=== PATIENT | female | born 1955 | race Caucasian/White ===

== ENCOUNTER 2022-01-19 08:54 | Day surgery (SDC) | payer BC, MEDICARE ==
[2022-01-17 11:04] VITALS: BMI 37.5
[~2022-01-19 08:54] MED LIST: ACETAMINOPHEN TAB 500 MG TAB PO PRN; HEPARIN SODIUM,PORCINE/PF 5,000 UNIT/0.5 ML SYRINGE SQ PRN
[2022-01-19] MEDS ORDERED: ONDANSETRON 4 MG/2 ML VIAL ONE (09:19)
[2022-01-19 09:33] LABS: Glucose,Whole Blood 129 mg/dL (75-99)
[2022-01-19] MEDS ORDERED: LACTATED RINGERS 1,000 ML IV ONE (09:35)
[2022-01-19] MEDS ORDERED: fentaNYL (PF) 50 MCG/ML 2 ML AMP IVP ONE (10:24)
[2022-01-19] MEDS ORDERED: MIDAZOLAM 2 MG/2 ML VIAL IVP ONE (10:24)
[2022-01-19] MEDS ORDERED: BUPIVACAINE (PF) 0.25% 30 ML VIAL SQ ONE (10:28)
[2022-01-19] MEDS ORDERED: PROPOFOL 10 MG/ML 20 ML VIAL IV ONE (10:35)
[2022-01-19] MEDS ORDERED: SUCCINYLCHOLINE CHLORIDE 100 MG/5 ML SYR IV ONE (10:35)
[2022-01-19] MEDS ORDERED: ROPIVACAINE 5 MG/ML 30 ML VIAL ONE (10:35)
[2022-01-19] MEDS ORDERED: NEOSTIGMINE 1 MG/ML 10 ML VIAL ONE (10:35)
[2022-01-19] MEDS ORDERED: GLYCOPYRROLATE 0.2 MG/ML 2 ML VIAL ONE (10:35)
[2022-01-19] MEDS ORDERED: LIDOCAINE 1% INJ 10MG/ML (20 ML MDV) ONE (10:35)
[2022-01-19] MEDS ORDERED: SODIUM CHLORIDE 0.9% (PF) 10 ML VIAL ONE (10:35)
[2022-01-19] MEDS ORDERED: fentaNYL (PF) 50 MCG/ML 2 ML AMP ONE (10:35)
[2022-01-19] MEDS ORDERED: PHENYLEPHRINE-0.9% NACL SYG 1,000 MCG/10 ML SYRINGE ONE (10:35)
[2022-01-19] MEDS ORDERED: ROCURONIUM 10 MG/ML (5 ML VIAL) IV ONE (10:35)
--- NOTE | 2022-01-19 10:37 | P.GSHP ---
History of Present Illness H&P Date: 01/19/22 Chief Complaint: Incarcerated ventral hernia 66-year-old female here today for elective repair incarcerated ventral hernia. Mild pain at times. Hernia enlarging over the last few years. No nausea or vomiting. Past Medical History Past Medical History: GERD/Reflux, Hypertension Additional Past Medical History / Comment(s): "prediabetic"-supposed to watch diet, overactive bladder, fell last week and has sore ribs History of Any Multi-Drug Resistant Organisms: None Reported Past Surgical History: Appendectomy Additional Past Surgical History / Comment(s): D&C, jeromy cataracts Past Anesthesia/Blood Transfusion Reactions: No Reported Reaction Smoking Status: Former smoker - Past Family History Mother Family Medical History: Cancer Medications and Allergies Home Medications Medication Instructions Recorded Confirmed Type Aspirin [Adult Low Dose Aspirin EC] 81 mg PO DAILY 01/17/22 01/19/22 History Calcium(Dose Unknown) 1 tab PO DAILY 01/17/22 01/19/22 History Naproxen Sodium [Aleve] 220 mg PO Q12HR PRN 01/17/22 01/19/22 History Omeprazole(Dose Unknown) 1 tab PO HS 01/17/22 01/19/22 History Oxybutynin(Dose Unknown) 1 tab PO DAILY 01/17/22 01/19/22 History Vitamin D(Dose Unknown) 1 tab PO DAILY 01/17/22 01/19/22 History lisinopriL [Zestril] 20 mg PO DAILY 01/17/22 01/19/22 History Allergies Allergy/AdvReac Type Severity Reaction Status Date / Time No Known Allergies Allergy Verified 01/19/22 09:10 Surgical - Exam Vital Signs Temp Pulse Resp BP Pulse Ox 99.2 F 82 18 172/74 95 01/19/22 09:11 01/19/22 09:11 01/19/22 09:11 01/19/22 09:11 01/19/22 09:11 Physical exam: General: Well-developed, well-nourished HEENT: Normocephalic, sclerae nonicteric Abdomen: Nontender, nondistended, incarcerated ventral hernia moderate to large in size, minimally tender Extremities: No edema Neuro: Alert and oriented Results - Labs Abnormal Lab Results - Last 24 Hours (Table) 01/19/22 Range/Units 09:31 POC Glucose (mg/dL) 129 H (75-99) mg/dL Assessment and Plan (1) Incarcerated ventral hernia Narrative/Plan: 66-year-old female with incarcerated ventral hernia. We'll proceed with open repair with mesh at this time. Risks of bleeding, infection, recurrence, bladder and bowel injury, numbness, nerve injury were discussed with the patient. The patient understands and wishes to proceed. Current Visit: Yes Status: Acute Code(s): K43.6 - OTHER AND UNSP VENTRAL HERNIA WITH OBSTRUCTION, W/O GANGRENE SNOMED Code(s): 489583970
[2022-01-19] MEDS ORDERED: HEPARIN SODIUM,PORCINE 5,000 UNIT/ML 1 ML VIAL SQ ONE (10:40)
[2022-01-19] MEDS ORDERED: DEXAMETHASONE SOD PHOSPHATE 4 MG/ML 1 ML VIAL IVP ONE (10:40)
--- NOTE | 2022-01-19 11:02 | P.ANPRN ---
Procedure Note - Anesthesia - Nerve Block Performed Bilateral Erector Spinae Time Out Performed: Yes (:) Date of Procedure: 01/19/22 Procedure Start Time: Procedure Stop Time: :32 Location of Patient: PreOp Indication: Acute Post-Operative Pain, Requested by Surgeon (Dr Soliz) Sedation Type: Sedate with meaningful contact maintained Preparation: Sterile Prep Position: Prone Catheter: None Needle Types: Pajunk Needle Gauge: 21 Ultrasound used to visualize needle placement: Yes Ultrasound used to observe medication spread: Yes Injectate: 0.5% Ropivacaine (see comment for volume) (15cc +10cc PF Normal saline each side) Blood Aspirated: No Pain Paresthesia on Injection Noted: No Resistance on Injection: Normal Image Stored and Saved: Yes Events: Uneventful and Well Tolerated
[2022-01-19] MEDS ORDERED: HYDROmorphone 0.5 MG/0.5 ML SYRINGE IVP ONE ×3 (12:25→12:42)
[2022-01-19] MEDS ORDERED: NALOXONE 0.4 MG/ML 1 ML VIAL IV PRN (12:27)
[2022-01-19] MEDS ORDERED: ONDANSETRON 4 MG/2 ML VIAL IVP PRN (12:27)
[2022-01-19] MEDS ORDERED: bisacodyL 10 MG SUPP RECTAL PRN (12:27)
[2022-01-19] MEDS ORDERED: METOCLOPRAMIDE 5 MG/ML 2 ML VIAL IVP PRN (12:27)
[2022-01-19] MEDS ORDERED: HYDROmorphone 0.5 MG/0.5 ML SYRINGE IVP PRN (12:27)
--- NOTE | 2022-01-19 12:41 | P.OP ---
Date of Procedure: 01/19/22 Procedure(s) Performed: PREOPERATIVE DIAGNOSIS: Incarcerated ventral hernia POSTOPERATIVE DIAGNOSIS: Same PROCEDURE: Repair incarcerated ventral hernia with mesh, partial omentectomy SURGEON: Dr. Soliz ANESTHESIA: General OPERATIVE PROCEDURE DETAILS: Patient placed on the operating table in the supine position. Abdomen was prepped and draped in usual sterile fashion. A vertical incision was then made superior to the umbilicus by approximately 3 cm. Dissection through the subcutaneous tissues took place using electrocautery. The patient had a large hernia coming through a defect measuring 3 x 4 cm. The hernia sac was opened. The omentum was freed from the edges. A portion of the omentum was excised using the LigaSure device. The hernia sac was excised also using the LigaSure device. This hernia sac was then closed using a running locking 2-0 Vicryl suture. As I was dissecting the fascia around the main defect another 1.5 x 1.5 cm ventral hernia was encountered. This was partially excised. The fascial opening was incorporated into the main fascial defect which now measured 5 x 3 cm. The pre-peroneal space was fully dissected. In dissecting the preparethe preperitoneal space was quite thin laterally and we did enter the peritoneal cavity at those locations. The 8 cm round ventral ex mesh was placed beneath the fascia and sutured to the fascia using trans-fascial 0 Ethibond sutures. The defect was then closed horizontally in a vest over pants fashion using interrupted 0 Ethibond sutures. The folding edge was sutured down using 0 Ethibond sutures as well. A drain was placed anterior to the fascial closure exiting from the right lateral lower quadrant. The subcutaneous tissues were closed using 3-0 Vicryl sutures. The skin was closed using a running 4-0 Monocryl suture. Skin glue and sterile dressings were applied. Length: 3 cm Width: 5 cm Type: Incarcerated ventral TYPE OF MESH USED: Ventral ex 8 cm LOCATION OF MESH: sublay FIXATION: Trans-fascial level Ethibond sutures PREOPERATIVE DISCUSSION ON SMOKING CESSASTION: Yes PREOPERATIVE DISCUSSION ON MORBID OBESITY: Yes PREOPERATIVE DISCUSSION ON APPROPRIATE USE OF NARCOTIC USE: Yes DISPOSITION: Stable to recovery room
[2022-01-19] MEDS: HYDROcodone/APAP 5-325MG 1 EACH TAB PO PRN ×2 (14:09→22:37)
[2022-01-19] MEDS: D5-0.45% NACL WITH KCL 20MEQ/L 1,000 ML IV SCH ×2 (15:58→22:38)
[2022-01-19] MEDS ORDERED: ARTIFICIAL TEARS-HYPROMELLOSE DROPS 15 ML BTL RIGHT EYE PRN (16:10)
--- NOTE | 2022-01-19 16:10 | P.CONS ---
History of Present Illness - Reason for Consult Consult date: 01/19/22 Medical management Requesting physician: Be Soliz - Chief Complaint Hernia repair - History of Present Illness This is a very pleasant 66-year-old patient follows with Dr. Tirado. Chronic stable medical conditions include GERD, hypertension, prediabetes, overactive bladder,. A few years ago she thinks she (heavy water can hold on 40 pounds and since then has noticed a hernia progressive in the abdominal wall. Patient has undergone repair of incarcerated ventral hernia with mesh with partial omentectomy. Postprocedure laying in bed. In control. No nausea vomiting. No fever no chills. Denies any cardiac history. Review of systems: GEN.: Tired EYES: None HEENT: None NECK: None RESPIRATORY: None CARDIOVASCULAR: None GASTROINTESTINAL: None GENITOURINARY: Overactive bladder MUSCULOSKELETAL: As above LYMPHATICS: None HEMATOLOGICAL: None PSYCHIATRY: None NEUROLOGICAL: None Past medical history to include: GERD, hypertension, prediabetes, overactive bladder, left rib cage pain from recent fall, abdominal wall hernia Social history: Patient smoked for 30 years stopped about 20 years ago. Alcohol occasionally. Lives alone. Family history: Cancer Physical examination: VITAL SIGNS: 97.5, 76, 18, 118/80, 93% room air GENERAL: BMI 36.6, reclining in bed, awake. EYES: Pupils equal. Conjunctiva normal. HEENT: External appearance of nose and ears normal, oral cavity grossly normal. NECK: JVD not raised; masses not palpable. HEART: First and second heart sounds are normal; no edema. LUNGS: Respiratory rate normal; decreased breath sounds. ABDOMEN: Soft, binder, mild tenderness r, liver spleen not palpable, no masses palpable. PSYCH: Alert and oriented x3; mood and affect normal. MUSCULOSKELETAL:No Clubbing/cyanosis;muscles-grossly intact NEUROLOGICAL: Cranial nerves grossly intact; no facial asymmetry, power and sensation grossly intact. LYMPHATICS: No lymph nodes palpable in the axilla and neck Assessment and plan: -Repair of incarcerated ventral hernia with some partial omentectomy Abdominal binder. Pain control per Dr. Duval -GERD Omeprazole -Overactive bladder Oxybutynin -Essential hypertension Zestril -Primary osteoarthritis Naproxen -Obesity BMI 36.6 Weight loss measures Resume home medications. Venodyne boots. Diet to be advanced per surgery. Care was discussed with the patient question also. Patient to follow with Dr. Tirado upon discharge Thank you Dr. Duval Past Medical History Past Medical History: GERD/Reflux, Hypertension Additional Past Medical History / Comment(s): "prediabetic"-supposed to watch diet, overactive bladder, fell last week and has sore ribs History of Any Multi-Drug Resistant Organisms: None Reported Past Surgical History: Appendectomy Additional Past Surgical History / Comment(s): D&C, jeromy cataracts Past Anesthesia/Blood Transfusion Reactions: No Reported Reaction Past Psychological History: No Psychological Hx Reported Smoking Status: Former smoker Past Alcohol Use History: Occasional Additional Past Alcohol Use History / Comment(s): quit smoking over 20 yrs ago, smoked since age 14 Past Drug Use History: None Reported - Past Family History Mother Family Medical History: Cancer Medications and Allergies Home Medications Medication Instructions Recorded Confirmed Type Aspirin [Adult Low Dose Aspirin EC] 81 mg PO DAILY 01/17/22 01/19/22 History Calcium(Dose Unknown) 1 tab PO DAILY 01/17/22 01/19/22 History Naproxen Sodium [Aleve] 220 mg PO Q12HR PRN 01/17/22 01/19/22 History Omeprazole(Dose Unknown) 1 tab PO HS 01/17/22 01/19/22 History Oxybutynin(Dose Unknown) 1 tab PO DAILY 01/17/22 01/19/22 History Vitamin D(Dose Unknown) 1 tab PO DAILY 01/17/22 01/19/22 History lisinopriL [Zestril] 20 mg PO DAILY 01/17/22 01/19/22 History oxyCODONE HCL [OxyIR] 5 mg PO Q6H PRN 3 Days #6 tab 01/19/22 Rx Allergies Allergy/AdvReac Type Severity Reaction Status Date / Time No Known Allergies Allergy Verified 01/19/22 09:10 Physical Exam Vitals: Vital Signs Temp Pulse Resp BP Pulse Ox 01/19/22 13:32 97.5 F L 76 18 118/80 93 L 01/19/22 13:00 77 16 122/65 100 01/19/22 12:45 69 16 119/70 100 01/19/22 12:30 67 16 111/62 100 01/19/22 12:15 97 F L 69 12 103/51 95 01/19/22 10:40 74 16 125/73 95 03/11/22 09:11 99.2 F 82 18 172/74 95 Intake and Output 01/19/22 01/19/22 01/19/22 06:59 14:59 22:59 Intake Total 650 Output Total 25 Balance 625 Intake: IV 650 Output: Estimated Blood Loss 25 Other: Weight 98.3 kg Results Labs: Abnormal Lab Results - Last 24 Hours (Table) 01/19/22 Range/Units 09:31 POC Glucose (mg/dL) 129 H (75-99) mg/dL
[2022-01-19] MEDS: HEPARIN SODIUM,PORCINE/PF 5,000 UNIT/0.5 ML SYRINGE SQ SCH ×2 (16:15→22:38)
[2022-01-19] MEDS: KETOROLAC 15 MG/ML 1 ML VIAL IVP SCH ×2 (17:11→22:36)
[2022-01-19] MEDS ORDERED: PANTOPRAZOLE 40 MG TABLET PO SCH (21:00)
[2022-01-19] MEDS: DOCUSATE 100 MG CAP PO SCH (22:37)
[2022-01-20] MEDS: KETOROLAC 15 MG/ML 1 ML VIAL IVP SCH ×2 (05:43→11:57)
[2022-01-20 07:54] VITALS: RESP 17
[2022-01-20] MEDS: D5-0.45% NACL WITH KCL 20MEQ/L 1,000 ML IV SCH (08:34)
[2022-01-20] MEDS: HEPARIN SODIUM,PORCINE/PF 5,000 UNIT/0.5 ML SYRINGE SQ SCH (08:34)
[2022-01-20] MEDS: OXYBUTYNIN XL 5 MG TAB.ER.24 PO SCH ×2 (08:35→08:36)
[2022-01-20] MEDS: DOCUSATE 100 MG CAP PO SCH (08:35)
[2022-01-20 08:37] LABS: Basophils # (A) 0.03 X 10*3/uL (0.00-0.10); Basophils % (A) 0.3 %; Eosinophils # (A) 0.01 X 10*3/uL (0.04-0.35); Eosinophils % (A) 0.1 %; Immature Grans, Automated 0.4 %; Lymphocytes # (A) 1.41 X 10*3/uL (0.90-5.00); Lymphocytes % (A) 13.5 %; MCH 28.7 pg (27.0-32.0); MCHC 31.7 g/dL (32.0-37.0); MCV 90.5 fL (80.0-97.0); Mean Platelet Volume 9.6 fL (9.5-12.2); Monocytes # (A) 0.76 X 10*3/uL (0.20-1.00); Monocytes % (A) 7.3 %; NRBC Per 100 WBC 0 /100 WBCS (0.0-0.0); Neutrophils % (A) 78.4 %; Platelet Count 216 X 10*3/uL (140-440); RBC 4.53 X 10*6/uL (4.10-5.20); RDW 12.6 % (11.5-14.5); WBC 10.45 X 10*3/uL (4.50-10.00)
[2022-01-20 08:49] LABS: African American GFR (CKD) 87.8 (60.0-200.0); Anion Gap 10.3 mmol/L (10.00-18.00); BUN/Creat Ratio 13.38 Ratio (12.00-20.00); Blood Urea Nitrogen 10.7 mg/dL (9.0-27.0); Calcium 9.4 mg/dL (8.7-10.3); Carbon Dioxide 25.7 mmol/L (20.0-27.5); Non-African American GFR(CKD) 75.8 (60.0-200.0); Potassium 4.6 mmol/L (3.5-5.5)
[2022-01-20] MEDS ORDERED: ASPIRIN 81 MG PO SCH (09:00)
[2022-01-20] MEDS ORDERED: lisinopriL 20 MG TAB PO SCH (09:00)
--- NOTE | 2022-01-20 12:14 | P.DS ---
Providers Expected date of discharge: 01/20/22 Attending physician: Be Soliz Consults: 01/19/22 12:27 Consult Physician Routine Consulting Provider: Daniel Beal Consult Reason/Comments: Medical management Do you want consulting provider notified?: Yes Primary care physician: Mike Tirado - Discharge Diagnosis(es) (1) Incarcerated ventral hernia Patient hospitalized after elective repair incisional hernia yesterday. Doing well today. Pain is well-controlled. BLANKA drain is serosanguineous. Tolerating diet. Will plan discharge. Follow-up one week. Current Visit: Yes Status: Acute Plan - Discharge Summary Discharge Rx Participant: No New Discharge Prescriptions: New oxyCODONE HCL [OxyIR] 5 mg PO Q6H PRN 3 Days #6 tab PRN Reason: Breakthrough Pain No Action Oxybutynin(Dose Unknown) 1 tab PO DAILY Omeprazole(Dose Unknown) 1 tab PO HS Aspirin [Adult Low Dose Aspirin EC] 81 mg PO DAILY Naproxen Sodium [Aleve] 220 mg PO Q12HR PRN PRN Reason: Pain lisinopriL [Zestril] 20 mg PO DAILY Vitamin D(Dose Unknown) 1 tab PO DAILY Calcium(Dose Unknown) 1 tab PO DAILY Discharge Medication List Aspirin [Adult Low Dose Aspirin EC] 81 mg PO DAILY 01/17/22 [History] Calcium(Dose Unknown) 1 tab PO DAILY 01/17/22 [History] Naproxen Sodium [Aleve] 220 mg PO Q12HR PRN 01/17/22 [History] Omeprazole(Dose Unknown) 1 tab PO HS 01/17/22 [History] Oxybutynin(Dose Unknown) 1 tab PO DAILY 01/17/22 [History] Vitamin D(Dose Unknown) 1 tab PO DAILY 01/17/22 [History] lisinopriL [Zestril] 20 mg PO DAILY 01/17/22 [History] oxyCODONE HCL [OxyIR] 5 mg PO Q6H PRN 3 Days #6 tab 01/19/22 [Rx] Follow up Appointment(s)/Referral(s): Be Soliz MD [Medical Doctor] - 01/25/22 9:20 am
--- NOTE | 2022-01-20 15:08 | PN ---
PROGRESS NOTE DATE OF SERVICE: 01/20/2022 This 66-year-old woman admitted after surgery for ventral hernia is being closely monitored. No chest pain. No palpitations. No fever. PHYSICAL EXAMINATION: Pulse 65, blood pressure 177/76, respiration 17. NECK is no JVD. CARDIOVASCULAR system: S1, S2. Chest: Clear to auscultation. ABDOMEN: Soft, status post surgery. Nervous system: No focal deficits. LABS: WBC 10.4. Other labs are noted. ASSESSMENT: 1. Status post incarcerated ventral hernia repair. 2. Gastroesophageal reflux disease. 3. Overactive bladder. 4. Hypertension. RECOMMENDATIONS AND DISCUSSION: Recommend to continue current medications, management and symptomatic treatment. Resume the home medications. Follow up with the primary physician. The rest of the recommendations per surgery. Further recommendations to follow. MMODL / IJN: [id number] /
[2022-01-20 15:11] VITALS: BP 117/66; PULSE 75; TEMP 97.6
[2022-01-20] MEDS: HYDROcodone/APAP 5-325MG 1 EACH TAB PO PRN (16:13)
[2022-01-21] MEDS ORDERED: NAPROXEN 250 MG TAB PO PRN (18:00)
== END 2022-01-20 16:16 | disposition home or self-care (01) ==
LOC: OR 08:54 → 4SSUR 12:15 → OR 01-20 16:16
PROVIDERS: ATTEND Surgery
DX: K43.6 Other and unspecified ventral hernia with obstruction, without gangrene (principal); I10 Essential (primary) hypertension; N32.81 Overactive bladder; K21.9 Gastro-esophageal reflux disease without esophagitis; Z87.891 Personal history of nicotine dependence; Z79.82 Long term (current) use of aspirin
CPT/HCPCS: 49561; 64999; 88305; 80048; 85025; C1781; J2250; J1644 ×3; J1100; J2710; J0690; J2405; J2001; J3010; J2795; J1885 ×2; J2370; J0330; J2704; J1170

== ENCOUNTER 2022-08-02 17:07 | Inpatient (IN) | payer MEDICARE ==
--- NOTE | 2022-08-02 20:35 | ED ---
Abdominal Pain HPI - General Chief Complaint: Abdominal Pain Stated Complaint: Gallbladder pain, sent by DR Ellington Seen by Provider: 08/02/22 18:02 Source: patient, RN notes reviewed Mode of arrival: ambulatory Limitations: no limitations - History of Present Illness Initial Comments: 67-year-old female who states she had the onset yesterday of right upper quadrant pain with fevers chills sweats nausea vomiting. States the pain was 8/10 severity yesterday today's about 1-2/10 in severity she had an outpatient ultrasound done which showed evidence of acute cholecystitis. Patient was seen at [facility] was started on IV antibiotics she had lab work done which showed an elevated white blood cell count left shift she was transferred here for further evaluation and treatment she has seen Dr. Soliz in the past. She currently states the pain is fairly well controlled as long she does not move she has no more nausea no vomiting she did have a low-grade temperature upon arrival here. The ultrasound did show evidence of acute cholecystitis including cholelithiasis wall thickening. Colic fluid and a positive sonographic Tucker sign. Patient does admit to decreased appetite over last couple days. MD Complaint: abdominal pain - Related Data Home Medications Medication Instructions Recorded Confirmed Aspirin [Adult Low Dose Aspirin EC] 81 mg PO DAILY 01/17/22 01/19/22 Calcium(Dose Unknown) 1 tab PO DAILY 01/17/22 01/19/22 Naproxen Sodium [Aleve] 220 mg PO Q12HR PRN 01/17/22 01/19/22 Omeprazole(Dose Unknown) 1 tab PO HS 01/17/22 01/19/22 Oxybutynin(Dose Unknown) 1 tab PO DAILY 01/17/22 01/19/22 Vitamin D(Dose Unknown) 1 tab PO DAILY 01/17/22 01/19/22 lisinopriL [Zestril] 20 mg PO DAILY 01/17/22 01/19/22 Previous Rx's Medication Instructions Recorded oxyCODONE HCL [OxyIR] 5 mg PO Q6H PRN 3 Days #6 tab 01/19/22 Allergies Allergy/AdvReac Type Severity Reaction Status Date / Time No Known Allergies Allergy Verified 08/02/22 17:45 Review of Systems ROS Statement: Those systems with pertinent positive or pertinent negative responses have been documented in the HPI. ROS Other: All systems not noted in ROS Statement are negative. Past Medical History Past Medical History: GERD/Reflux, Hypertension Additional Past Medical History / Comment(s): "prediabetic"-supposed to watch diet, overactive bladder, fell last week and has sore ribs History of Any Multi-Drug Resistant Organisms: None Reported Past Surgical History: Appendectomy Additional Past Surgical History / Comment(s): D&C, jeromy cataracts Past Anesthesia/Blood Transfusion Reactions: No Reported Reaction Past Psychological History: No Psychological Hx Reported Smoking Status: Former smoker Past Alcohol Use History: Occasional Past Drug Use History: None Reported - Past Family History Mother Family Medical History: Cancer General Exam - General Exam Comments Initial Comments: This is a well-developed well-nourished awake alert oriented 4 female Limitations: no limitations General appearance: alert, in no apparent distress Head exam: Present: atraumatic, normocephalic, normal inspection Eye exam: Present: normal appearance, PERRL, EOMI. Absent: scleral icterus, conjunctival injection, periorbital swelling ENT exam: Present: normal exam, mucous membranes moist Neck exam: Present: normal inspection, full ROM. Absent: tenderness, meningismus, lymphadenopathy Respiratory exam: Present: normal lung sounds bilaterally. Absent: respiratory distress, wheezes, rales, rhonchi, stridor Cardiovascular Exam: Present: regular rate, normal rhythm, normal heart sounds. Absent: systolic murmur, diastolic murmur, rubs, gallop, clicks GI/Abdominal exam: Present: soft, tenderness (Right upper quadrant tenderness palpation no overt guarding at this time), normal bowel sounds. Absent: distended, guarding, rebound, rigid, bruit, pulsatile mass Extremities exam: Present: normal inspection, full ROM, normal capillary refill. Absent: tenderness, pedal edema, joint swelling, calf tenderness Back exam: Present: normal inspection Neurological exam: Present: alert, oriented X3, CN II-XII intact Psychiatric exam: Present: normal affect, normal mood Skin exam: Present: warm, dry, intact, normal color. Absent: rash Course Vital Signs 08/02/22 17:40 Temperature 99.7 F H Pulse Rate 79 Respiratory 20 Rate Blood Pressure 128/75 O2 Sat by Pulse 95 Oximetry - Reevaluation(s) Reevaluation #1: 08/02/22 20:39 I did review the material sent from [facility] with the patient. A disc of the ultrasound is not in the packet.. Written reported is in the packet. Medical Decision Making - Medical Decision Making I did discuss findings with Dr. Soliz as well as with the patient previously patient be admitted with consultation from Dr. Beal her medicine Disposition Clinical Impression: Acute cholecystitis, Cholelithiasis, Abdominal pain, Fever Disposition: ADMITTED IP TO THIS [facility] Condition: Fair Is patient prescribed a controlled substance at d/c from ED?: No Referrals: Mike Tirado MD [Primary Care Provider] - 1-2 days Decision Date: 08/02/22 Decision Time: 21:00
[2022-08-02] MEDS ORDERED: NALOXONE 0.4 MG/ML 1 ML VIAL IV PRN (21:03)
[2022-08-02] MEDS ORDERED: HYDROmorphone 0.5 MG/0.5 ML SYRINGE IVP PRN (21:03)
[2022-08-02] MEDS ORDERED: ONDANSETRON 4 MG/2 ML VIAL IVP PRN (21:03)
[2022-08-02] MEDS: SODIUM CHLORIDE 0.9% 1,000 ML IV SCH (23:23)
[2022-08-03 07:50] LABS: Basophils % (A) 0 %; Eosinophils # (A) 0.3 k/uL (0-0.7); Eosinophils % (A) 3 %; HCT 39.5 % (34.0-46.0); Lymphocytes % (A) 10 %; MCH 29.8 pg (25.0-35.0); MCHC 32.9 g/dL (31.0-37.0); MCV 90.6 fL (80.0-100.0); Mean Platelet Volume 7.6; Monocytes # (A) 0.5 k/uL (0-1.0); Monocytes % (A) 5 %; Neutrophils # (A) 7.9 k/uL (1.3-7.7); Neutrophils % (A) 80 %; Platelet Count 161 k/uL (150-450); RBC 4.36 m/uL (3.80-5.40); RDW 12.9 % (11.5-15.5); WBC 9.8 k/uL (3.8-10.6)
[2022-08-03 07:59] LABS: ALT 19 U/L (4-34); AST 21 U/L (14-36); African American GFR (CKD) >90 (>60 ml/min/1.73 sqM); Albumin 3.2 g/dL (3.5-5.0); Alkaline Phosphatase 89 U/L (38-126); Anion Gap 9 mmol/L; Blood Urea Nitrogen 11 mg/dL (7-17); Calcium 8.2 mg/dL (8.4-10.2); Carbon Dioxide 23 mmol/L (22-30); Chloride 106 mmol/L (98-107); Glucose 137 mg/dL (74-99); Non-African American GFR(CKD) >90 (>60 ml/min/1.73 sqM); Potassium 3.5 mmol/L (3.5-5.1); Sodium 138 mmol/L (137-145); Total Bilirubin 1.2 mg/dL (0.2-1.3); Total Protein 5.5 g/dL (6.3-8.2)
[2022-08-03] MEDS: SODIUM CHLORIDE 0.9% 1,000 ML IV SCH ×3 (08:13→20:40)
[2022-08-03] MEDS: PANTOPRAZOLE 40 MG/10 ML VIAL IV SCH (09:22)
[2022-08-03] MEDS: ENOXAPARIN 40 MG/0.4 ML SYRINGE SQ SCH (10:48)
[2022-08-03] MEDS: LISINOPRIL-HCTZ 10-12.5 MG 1 EACH TAB PO SCH (10:48)
[2022-08-03] MEDS: TROSPIUM CHLORIDE 20 MG TABLET PO SCH (10:48)
[2022-08-03] MEDS: PIPERACILLIN-TAZOBACTAM 3.375 GM in SODIUM CHLORIDE 0.9% 100 ML IVPB SCH ×2 (10:48→20:40)
[2022-08-03] MEDS ORDERED: POTASSIUM CHLORIDE ER 20 MEQ TAB.ER PO STA (10:51)
--- NOTE | 2022-08-03 10:53 | P.GSHP ---
History of Present Illness H&P Date: 08/03/22 CHIEF COMPLAINT: Recurrent abdominal pain HISTORY OF PRESENT ILLNESS: This is a 67-year-old female who presented to the hospital with complaints of right upper quadrant abdominal pain for the last 2 days. She reports that 2 days ago at 3:30 in the morning she had right upper quadrant pain that radiated into the right shoulder and back with nausea and vomiting. She was taking Aleve at home to help control the pain. She had an outpatient abdominal ultrasound completed that did show evidence of acute cholecystitis with gallstones and gallbladder wall thickening and pericholecystic fluid with positive Tucker sign. Patient initially presented to [facility] started on IV antibiotics and did have elevated white count. She was transferred to [facility] to be evaluated by general surgery for cholecystectomy. Patient denies any fever. But she has been reporting chills. Past surgical history includes a ventral hernia repair January of this year. She's also had an appendectomy. PAST MEDICAL HISTORY: See list. PAST SURGICAL HISTORY: See list. MEDICATIONS: See list. ALLERGIES: See list. SOCIAL HISTORY: No illicit drug use. Prior history of nicotine use. Occasional alcohol use. REVIEW OF SYSTEMS: CONSTITUTIONAL: Denies fever or chills. HEENT: Denies blurred vision, vision changes, or eye pain. Denies hemoptysis CARDIOVASCULAR: Denies chest pain or pressure. RESPIRATORY: No shortness of breath. GASTROINTESTINAL: See HPI for pertinent findings HEMATOLOGIC: Denies bleeding disorders. GENITOURINARY: Denies any blood in urine or increased urinary frequency. SKIN: Denies pruitis. Denies rash. PHYSICAL EXAM: VITAL SIGNS: Reviewed GENERAL: Well-developed in no acute distress. HEENT: No sclera icterus. Extraocular movements grossly intact. Moist buccal mucosa. Head is atraumatic, normocephalic. No nasal drainage. ABDOMEN: Soft. Nondistended. Right upper quadrant tenderness NEUROLOGIC: Alert and oriented. Cranial nerves II through XII grossly intact. LABORATORY DATA: WBC is 9.8 Hgb 13 platelets 161 Na138 potassium is 3.5 creatinine 0.61 Total bilirubin 1.2 AST 21 ALT 19 alk phos 89 IMAGING: ASSESSMENT: 1. Acute cholecystitis 2. Cholelithiasis 3. Hypokalemia PLAN: -Patient scheduled for laparoscopic cholecystectomy today with Dr. Soliz -Keep patient nothing by mouth -Start IV antibiotics -Continue IV fluids -Replace potassium -Medicine service consulted for medical management Physician Jewel Hole Cornerer note has been reviewed by physician. Signing provider agrees with the documented findings, assessment, and plan of care. I have personally seen and examined the patient, reviewed the RADIOGRAPHER /PAs history, exam and MDM and agree with the assessment and plan as written. Based on total visit time, I have performed more than 50% of the visit. As above: Patient with history of known gallstones. Went to the ER with right upper quadrant pain associated with nausea. Studies performed suggest acute cholecystitis. Patient was started on IV antibiotics. She feels somewhat better now. Options reviewed. We'll proceed with laparoscopic, possible open cholecystectomy at this time. Risks of bleeding, infection, bile leak, bile duct injury, retained common bile duct stone, trocar injury, conversion to an open procedure, hernia, anesthesia related complications were reviewed. The patient understands and wishes to proceed. Past Medical History Past Medical History: GERD/Reflux, Hypertension Additional Past Medical History / Comment(s): "prediabetic"-supposed to watch diet, overactive bladder, fell last week and has sore ribs History of Any Multi-Drug Resistant Organisms: None Reported Past Surgical History: Appendectomy, Hernia Repair Additional Past Surgical History / Comment(s): D&C, jeromy cataracts Past Anesthesia/Blood Transfusion Reactions: No Reported Reaction Past Psychological History: No Psychological Hx Reported Smoking Status: Former smoker Past Alcohol Use History: Occasional Additional Past Alcohol Use History / Comment(s): quit smoking over 20 yrs ago, smoked since age 14 Past Drug Use History: None Reported - Past Family History Mother Family Medical History: Cancer Medications and Allergies Home Medications Medication Instructions Recorded Confirmed Type Aspirin [Adult Low Dose Aspirin EC] 81 mg PO DAILY 01/17/22 08/02/22 History Calcium Carbonate [Calcium] 600 mg PO DAILY 08/02/22 08/02/22 History Cholecalciferol [Vitamin D3 (125 125 mcg PO DAILY 08/02/22 08/02/22 History Mcg = 5000 Iu)] Fesoterodine Fumarate [Toviaz] 4 mg PO DAILY 08/02/22 08/02/22 History Lisinopril-Hctz 10-12.5 mg 1 tab PO DAILY 08/02/22 08/02/22 History [Zestoretic 10-12.5] Omeprazole 40 mg PO HS 08/02/22 08/02/22 History lisinopriL [Zestril] 20 mg PO DIRECTED PRN 08/02/22 08/02/22 History Allergies Allergy/AdvReac Type Severity Reaction Status Date / Time No Known Allergies Allergy Verified 08/02/22 21:08 Surgical - Exam Vital Signs Temp Pulse Resp BP Pulse Ox 99.7 F H 79 20 128/75 95 08/02/22 17:40 08/02/22 17:40 08/02/22 17:40 08/02/22 17:40 08/02/22 17:40 Results - Labs 08/03/22 07:31 08/03/22 07:31 Abnormal Lab Results - Last 24 Hours (Table) 08/03/22 08/03/22 Range/Units 07:31 07:31 Neutrophils # 7.9 H (1.3-7.7) k/uL Glucose 137 H (74-99) mg/dL Calcium 8.2 L (8.4-10.2) mg/dL Total Protein 5.5 L (6.3-8.2) g/dL Albumin 3.2 L (3.5-5.0) g/dL Diabetes panel 08/03/22 Range/Units 07:31 Sodium 138 (137-145) mmol/L Potassium 3.5 (3.5-5.1) mmol/L Chloride 106 (98-107) mmol/L Carbon Dioxide 23 (22-30) mmol/L BUN 11 (7-17) mg/dL Creatinine 0.61 (0.52-1.04) mg/dL Glucose 137 H (74-99) mg/dL Calcium 8.2 L (8.4-10.2) mg/dL AST 21 (14-36) U/L ALT 19 (4-34) U/L Alkaline Phosphatase 89 (38-126) U/L Total Protein 5.5 L (6.3-8.2) g/dL Albumin 3.2 L (3.5-5.0) g/dL Calcium panel 08/03/22 Range/Units 07:31 Calcium 8.2 L (8.4-10.2) mg/dL Albumin 3.2 L (3.5-5.0) g/dL Pituitary panel 08/03/22 Range/Units 07:31 Sodium 138 (137-145) mmol/L Potassium 3.5 (3.5-5.1) mmol/L Chloride 106 (98-107) mmol/L Carbon Dioxide 23 (22-30) mmol/L BUN 11 (7-17) mg/dL Creatinine 0.61 (0.52-1.04) mg/dL Glucose 137 H (74-99) mg/dL Calcium 8.2 L (8.4-10.2) mg/dL Adrenal panel 08/03/22 Range/Units 07:31 Sodium 138 (137-145) mmol/L Potassium 3.5 (3.5-5.1) mmol/L Chloride 106 (98-107) mmol/L Carbon Dioxide 23 (22-30) mmol/L BUN 11 (7-17) mg/dL Creatinine 0.61 (0.52-1.04) mg/dL Glucose 137 H (74-99) mg/dL Calcium 8.2 L (8.4-10.2) mg/dL Total Bilirubin 1.2 (0.2-1.3) mg/dL AST 21 (14-36) U/L ALT 19 (4-34) U/L Alkaline Phosphatase 89 (38-126) U/L Total Protein 5.5 L (6.3-8.2) g/dL Albumin 3.2 L (3.5-5.0) g/dL
[2022-08-03] MEDS ORDERED: LACTATED RINGERS 1,000 ML IV ONE (15:01)
[2022-08-03 15:23] LABS: Glucose,Whole Blood 87 mg/dL (70-110)
[2022-08-03] MEDS ORDERED: ROCURONIUM 10 MG/ML (5 ML VIAL) IV ONE (15:42)
[2022-08-03] MEDS ORDERED: GLYCOPYRROLATE 0.2 MG/ML 2 ML VIAL ONE (15:42)
[2022-08-03] MEDS ORDERED: LIDOCAINE 2% INJ 20 MG/ML (2 ML VIAL) ONE (15:42)
[2022-08-03] MEDS ORDERED: NEOSTIGMINE 1 MG/ML 10 ML VIAL ONE (15:42)
[2022-08-03] MEDS ORDERED: MIDAZOLAM 2 MG/2 ML VIAL ONE (15:42)
[2022-08-03] MEDS ORDERED: fentaNYL (PF) 50 MCG/ML 2 ML AMP ONE (15:42)
[2022-08-03] MEDS ORDERED: PROPOFOL 10 MG/ML 20 ML VIAL IV ONE (15:42)
[2022-08-03] MEDS ORDERED: HYDROmorphone (PF) 1 MG/ML ONE (15:42)
[2022-08-03] MEDS ORDERED: SUCCINYLCHOLINE CHLORIDE 200 MG/10 ML VIAL IV ONE (15:42)
[2022-08-03] MEDS ORDERED: BUPIVACAIN-EPI 0.25%-1:200,000 30 ML VIAL SQ ONE ×3 (15:49→16:05)
[2022-08-03] MEDS ORDERED: HYDROmorphone 1 MG/ML 1 ML SYRINGE IVP PRN (17:42)
--- NOTE | 2022-08-03 17:49 | P.OP ---
Date of Procedure: 08/03/22 Procedure(s) Performed: PREOPERATIVE DIAGNOSIS: Acute cholecystitis POSTOPERATIVE DIAGNOSIS: Acute gangrenous cholecystitis with hydrops PROCEDURE: Laparoscopic cholecystectomy SURGEON: Martínez EBL: Minimal see anesthesia record ANESTHESIA: Gen. COMPLICATIONS: None OPERATIVE PROCEDURE: The patient was brought and placed on the operating room table in the supine position. The patient was placed under general anesthesia at that time. The abdomen was prepped and draped in the usual sterile fashion. A small horizontal incision was made in the right upper quadrant. The patient had a previous ventral hernia repair with mesh. I went into the abdominal cavity in the right upper quadrant using the optical trocar. There were no adhesions at that area. Full insufflation took place. A 12 mm trocar was placed under direct visualization in the epigastrium as well as a 5 mm right upper quadrant lateral trocar. The camera was inserted through the lateral 5 mm trocar and the umbilical region was inspected and was free of adhesions. There were some adhesions to the undersurface of the previous hernia repair. Blunt dissection mobilize some of these adhesions medially so it did not impede our view from the camera port at the umbilicus. The 5 mm trocar that went through the umbilicus went through a small defect we believe in the fascia. This was not surgically repair at this time. The patient's gallbladder was able to be palpated through the abdominal wall prior to incision. As expected the gallbladder was extremely distended and inflamed with gangrenous changes. A small opening was made so that we could grasp and manipulate the gallbladder. Whitish purulent fluid was evacuated. The gallbladder was retracted superiorly and laterally. The peritoneum overlying the infundibulum was bluntly dissected. The patient's cystic duct was visualized. The junction between the cystic duct common and hepatic duct was identified. The critical view of safety was achieved after blunt dissection. The cystic duct was edematous and slightly bigger than usual which is not unexpected. A 2-0 Ethibond stitch was used to ligate the cystic duct and this was tied down using the timeout device. Additional clip was also placed on the cystic duct. The specimen side was cut sharply. The adjacent cystic artery was identified and clipped as well. A small vessel was seen along the gallbladder fossa and clipped as well. The gallbladder was then removed from the liver bed using electrocautery. The gallbladder was then removed from the epigastric trocar site with an Endo Catch bag. The gallbladder fossa was irrigated with saline. There was no evidence of any bleeding or biliary drainage seen. A drain was placed in the right upper quadrant in the gallbladder fossa to the most lateral right upper quadrant trocar site. This was sutured to the skin using a 3-0 silk stitch. In order to remove the specimen the fascia was lengthened using cautery. The fascia was then closed in a running fashion using an 0 Vicryl stitch. The skin of all 3 sites was closed using a 4-0 Monocryl stitch. Skin glue was utilized on the incision sites. At the end of this procedure the sponge and needle counts were correct. DISPOSITION: Stable to the recovery room
[2022-08-03] MEDS ORDERED: PANTOPRAZOLE 40 MG TABLET PO SCH (21:00)
--- NOTE | 2022-08-03 21:30 | P.CONS ---
History of Present Illness - Reason for Consult Consult date: 08/03/22 Medical management Requesting physician: Be Soliz - Chief Complaint Right upper quadrant pain - History of Present Illness This is a pleasant 67-year-old patient who follows Dr. Tirado. Chronic stable medical conditions include hypertension, GERD, urinary incontinence, arthritis. Patient started off with right upper quadrant pain that progressively became worse. Presented to the ER. Also developed chills. Accompanied by Nausea vomiting. Symptoms became worse patient decided to come to the hospital. Review of systems: GEN.: Chills nausea vomiting EYES: None HEENT: None NECK: None RESPIRATORY: None CARDIOVASCULAR: None GASTROINTESTINAL: As above GENITOURINARY: Incontinent MUSCULOSKELETAL: Joint pains LYMPHATICS: None HEMATOLOGICAL: None PSYCHIATRY: None NEUROLOGICAL: None Past medical history to include: GERD, hypertension, prediabetes, overactive bladder, fell last week with some sore ribs Social history: Lives alone. Stopped smoking 20 years ago. Smoked lightly. Alcohol occasionally. 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 Physical examination: VITAL SIGNS: 99.7, 79, 20, 128/75, 95% room air GENERAL: BMI 37.6, laying but awake a bit tired. EYES: Pupils equal. Conjunctiva normal. HEENT: External appearance of nose and ears normal, oral cavity grossly normal. NECK: JVD not raised; masses not palpable. HEART: First and second heart sounds are normal; no edema. LUNGS: Respiratory rate normal; clear to auscultation. ABDOMEN: Soft, right upper quadrant tenderness, no guarding rigidity, liver spleen not palpable, no masses palpable. PSYCH: Alert and oriented x3; mood and affect normal. MUSCULOSKELETAL:No Clubbing/cyanosis;muscles-grossly intact, evidence of OA NEUROLOGICAL: Cranial nerves grossly intact; no facial asymmetry, power and sensation grossly intact. LYMPHATICS: No lymph nodes palpable in the axilla and neck INVESTIGATIONS, reviewed in the clinical context: White count 9.8 hemoglobin 13 platelets 161 potassium 3.5 crit 0.61 creatinine 0.61 total bilirubin 1.2 Assessment: And plan: -Acute cholecystitis. Pending cholecystectomy by Dr. Duval. IV Zosyn. Nothing by mouth. -Essential hypertension Zestril -GERD Omeprazole -Chronic urinary stress incontinence toviaz -Primary osteoarthritis multiple joints bilaterally Tylenol as needed IV Zosyn. Subcu Lovenox. Nothing by mouth. IV fluids. Discussed with patient. Stable to proceed with surgery. Resume home medications. Care was discussed with the patient. Questions answered. Thank you Dr. Duval Past Medical History Past Medical History: GERD/Reflux, Hypertension Additional Past Medical History / Comment(s): "prediabetic"-supposed to watch diet, overactive bladder, fell last week and has sore ribs History of Any Multi-Drug Resistant Organisms: None Reported Past Surgical History: Appendectomy, Hernia Repair Additional Past Surgical History / Comment(s): D&C, jeromy cataracts Past Anesthesia/Blood Transfusion Reactions: No Reported Reaction Past Psychological History: No Psychological Hx Reported Smoking Status: Former smoker Past Alcohol Use History: Occasional Additional Past Alcohol Use History / Comment(s): quit smoking over 20 yrs ago, smoked since age 14 Past Drug Use History: None Reported - Past Family History Mother Family Medical History: Cancer Medications and Allergies Home Medications Medication Instructions Recorded Confirmed Type Aspirin [Adult Low Dose Aspirin EC] 81 mg PO DAILY 01/17/22 08/02/22 History Calcium Carbonate [Calcium] 600 mg PO DAILY 08/02/22 08/02/22 History Cholecalciferol [Vitamin D3 (125 125 mcg PO DAILY 08/02/22 08/02/22 History Mcg = 5000 Iu)] Fesoterodine Fumarate [Toviaz] 4 mg PO DAILY 08/02/22 08/02/22 History Lisinopril-Hctz 10-12.5 mg 1 tab PO DAILY 08/02/22 08/02/22 History [Zestoretic 10-12.5] Omeprazole 40 mg PO HS 08/02/22 08/02/22 History lisinopriL [Zestril] 20 mg PO DIRECTED PRN 08/02/22 08/02/22 History Allergies Allergy/AdvReac Type Severity Reaction Status Date / Time No Known Allergies Allergy Verified 08/02/22 21:08 Physical Exam Vitals: Vital Signs Temp Pulse Pulse Resp BP BP Pulse Ox 08/03/22 03:05 98.4 F 75 18 114/63 95 08/02/22 22:57 98.8 F 89 17 119/80 95 08/02/22 22:50 98.8 F 89 16 119/80 95 08/02/22 17:40 99.7 F H 79 20 128/75 95 Intake and Output 08/02/22 08/03/22 08/03/22 22:59 06:59 14:59 Other: # Voids 2 Weight 99.337 kg Results CBC & Chem 7: 08/03/22 07:31 08/03/22 07:31 Labs: Abnormal Lab Results - Last 24 Hours (Table) 08/03/22 08/03/22 Range/Units 07:31 07:31 Neutrophils # 7.9 H (1.3-7.7) k/uL Glucose 137 H (74-99) mg/dL Calcium 8.2 L (8.4-10.2) mg/dL Total Protein 5.5 L (6.3-8.2) g/dL Albumin 3.2 L (3.5-5.0) g/dL
[2022-08-04] MEDS: HYDROcodone/APAP 5-325MG 1 EACH TAB PO PRN ×3 (03:48→20:28)
[2022-08-04] MEDS: PIPERACILLIN-TAZOBACTAM 3.375 GM in SODIUM CHLORIDE 0.9% 100 ML IVPB SCH ×3 (03:49→17:42)
[2022-08-04] MEDS: SODIUM CHLORIDE 0.9% 1,000 ML IV SCH ×4 (05:19→20:28)
[2022-08-04] MEDS: ENOXAPARIN 40 MG/0.4 ML SYRINGE SQ SCH (09:19)
[2022-08-04] MEDS: LISINOPRIL-HCTZ 10-12.5 MG 1 EACH TAB PO SCH (09:19)
[2022-08-04] MEDS: PANTOPRAZOLE 40 MG/10 ML VIAL IV SCH (09:19)
[2022-08-04] MEDS: TROSPIUM CHLORIDE 20 MG TABLET PO SCH (09:19)
[2022-08-04 11:34] LABS: Basophils # (A) 0.03 X 10*3/uL (0.00-0.10); Basophils % (A) 0.4 %; Eosinophils # (A) 0.13 X 10*3/uL (0.04-0.35); Eosinophils % (A) 1.6 %; HCT 36.4 % (37.2-46.3); HGB 11.7 g/dL (12.0-15.0); Immature Grans, Automated 0.5 %; Lymphocytes # (A) 0.94 X 10*3/uL (0.90-5.00); Lymphocytes % (A) 11.4 %; MCH 28.8 pg (27.0-32.0); MCHC 32.1 g/dL (32.0-37.0); MCV 89.7 fL (80.0-97.0); Mean Platelet Volume 9.7 fL (9.5-12.2); Monocytes # (A) 0.45 X 10*3/uL (0.20-1.00); Monocytes % (A) 5.5 %; NRBC Per 100 WBC 0 /100 WBCS (0.0-0.0); Neutrophils # (A) 6.66 X 10*3/uL (1.80-7.70); Neutrophils % (A) 80.6 %; Platelet Count 153 X 10*3/uL (140-440); RBC 4.06 X 10*6/uL (4.10-5.20); RDW 12.7 % (11.5-14.5); WBC 8.25 X 10*3/uL (4.50-10.00)
[2022-08-04 12:10] LABS: African American GFR (CKD) 102.5 (60.0-200.0); Albumin 3.1 g/dL (3.8-4.9); Albumin/Globulin Ratio 1.55 (1.60-3.17); Anion Gap 11.3 mmol/L (10.00-18.00); BUN/Creat Ratio 11.43 Ratio (12.00-20.00); Calcium 8.4 mg/dL (8.7-10.3); Carbon Dioxide 24.7 mmol/L (20.0-27.5); Non-African American GFR(CKD) 88.4 (60.0-200.0); Potassium 4.4 mmol/L (3.5-5.5); Total Bilirubin 0.5 mg/dL (0.30-1.20); Total Protein 5.1 g/dL (6.2-8.2)
--- NOTE | 2022-08-04 12:22 | P.PN ---
Subjective Progress Note Date: 08/04/22 Principal diagnosis: Acute gangrenous cholecystitis Patient doing well today. Her pain is improved. BLANKA drain is serosanguineous at this time. Tolerating diet. Objective - Vital Signs Vital signs: Vital Signs Temp 98 F 08/04/22 07:52 Pulse 72 08/04/22 07:52 Resp 16 08/04/22 07:52 BP 107/70 08/04/22 07:52 Pulse Ox 93 L 08/04/22 07:52 FiO2 Intake & Output 08/03/22 08/04/22 08/04/22 18:59 06:59 18:59 Intake Total 2540 300 300 Output Total 5 60 60 Balance 2535 240 240 Intake: IV 1400 Intake, IV Titration 1140 Amount Piperacillin-Tazobactam 3 100 .375 gm In Sodium Chloride 0.9% 100 ml @ 25 mls/hr IVPB Q8H [facility] Rx#: [id number] Sodium Chloride 0.9% 1, 1040 000 ml @ 130 mls/hr IV . Q7H42M [facility] Rx#:[id number] Oral 300 300 Output: Drainage 60 60 Right Abdomen 60 60 Estimated Blood Loss 5 Other: # Voids 2 - Exam Abdomen: Soft, nondistended, mild tenderness, incisions clean and dry - Labs CBC & Chem 7: 08/04/22 06:25 08/04/22 06:25 Labs: Abnormal Lab Results - Last 24 Hours (Table) 08/04/22 08/04/22 Range/Units 06:25 06:25 RBC 4.06 L (4.10-5.20) X 10*6/uL Hgb 11.7 L (12.0-15.0) g/dL Hct 36.4 L (37.2-46.3) % BUN 8.0 L (9.0-27.0) mg/dL BUN/Creatinine Ratio 11.43 L (12.00-20.00) Ratio Calcium 8.4 L (8.7-10.3) mg/dL AST 51 H (13-35) U/L Total Protein 5.1 L (6.2-8.2) g/dL Albumin 3.1 L (3.8-4.9) g/dL Albumin/Globulin Ratio 1.55 L (1.60-3.17) g/dL Assessment and Plan (1) Acute gangrenous cholecystitis Narrative/Plan: Patient doing well after cholecystectomy yesterday. Gradually increase activity. Advance diet as tolerated. Continue antibiotic. Possible discharge tomorrow. Current Visit: Yes Status: Acute Code(s): K81.0 - ACUTE CHOLECYSTITIS SNOMED Code(s): 80902986
--- NOTE | 2022-08-04 17:32 | P.PN ---
Progress Note - Text Progress Note Date: 08/04/22 - Chief Complaint Right upper quadrant pain Hospital course This is a pleasant 67-year-old patient who follows Dr. Tirado. Chronic stable medical conditions include hypertension, GERD, urinary incontinence, arthritis. Patient started off with right upper quadrant pain that progressively became worse. Presented to the ER. Also developed chills. Accompanied by Nausea vomiting. Symptoms became worse patient decided to come to the hospital. August 04: Underwent removal of gangrenous cholecystitis. On IV Zosyn. IV fluids. On a liquid diet. Has been up to urinate. No flatus or BM. Pain present. Active Medications Hydrocodone Bitart/Acetaminophen (Hydrocodone/Apap 5-325mg 1 Each Tab) 1 each PO Q4HR PRN PRN Reason: Mild Pain (Scale 1 to 3) Last Admin: 08/04/22 13:37 Dose: 1 each Enoxaparin Sodium (Enoxaparin 40 Mg/0.4 Ml Syringe) 40 mg SQ DAILY [facility] Last Admin: 08/04/22 09:19 Dose: 40 mg Hydromorphone HCl (Hydromorphone 0.5 Mg/0.5 Ml Syringe) 0.5 mg IVP Q3HR PRN PRN Reason: Moderate Pain (Scale 4 to 6) Last Admin: 08/03/22 21:54 Dose: 0.5 mg Hydromorphone HCl (Hydromorphone 1 Mg/Ml 1 Ml Syringe) 1 mg IVP Q3HR PRN PRN Reason: Moderate to Severe Pain Sodium Chloride (Saline 0.9%) 1,000 mls @ 130 mls/hr IV .Q7H42M [facility] Last Admin: 08/04/22 15:43 Dose: Not Given Piperacillin Sod/Tazobactam (Sod 3.375 gm/ Sodium Chloride) 100 mls @ 25 mls/hr IVPB Q8H [facility]; Protocol Last Admin: 08/04/22 10:54 Dose: 25 mls/hr Lisinopril (Lisinopril 20 Mg Tab) 20 mg PO DAILY [facility] Naloxone HCl (Naloxone 0.4 Mg/Ml 1 Ml Vial) 0.2 mg IV Q2M PRN PRN Reason: Opioid Reversal Ondansetron HCl (Ondansetron 4 Mg/2 Ml Vial) 4 mg IVP Q8HR PRN PRN Reason: Nausea And Vomiting Last Admin: 08/03/22 15:12 Dose: 4 mg Pantoprazole Sodium (Pantoprazole 40 Mg/10 Ml Vial) 40 mg IV DAILY [facility] Last Admin: 08/04/22 09:19 Dose: 40 mg Trospium (Trospium Chloride 20 Mg Tablet) 20 mg PO DAILY [facility] Last Admin: 08/04/22 09:19 Dose: 20 mg Past medical history to include: GERD, hypertension, prediabetes, overactive bladder, fell last week with some sore ribs Social history: Lives alone. Stopped smoking 20 years ago. Smoked lightly. Alcohol occasionally. 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 EYES: Pupils equal. Conjunctiva normal. HEENT: External appearance of nose and ears normal, oral cavity grossly normal. NECK: JVD not raised; masses not palpable. HEART: First and second heart sounds are normal; no edema. LUNGS: Respiratory rate normal; clear to auscultation. ABDOMEN: Soft, some abdominal tenderness, no guarding rigidity, liver spleen not palpable, no masses palpable. PSYCH: Alert and oriented x3; mood and affect normal. MUSCULOSKELETAL:No Clubbing/cyanosis;muscles-grossly intact, evidence of OA INVESTIGATIONS, reviewed in the clinical context: August 04: WBC 8.2 hemoglobin 11.7 platelets 153 potassium 4.4 creatinine 0.7 White count 9.8 hemoglobin 13 platelets 161 potassium 3.5 crit 0.61 creatinine 0.61 total bilirubin 1.2 Assessment: And plan: -Acute gangrenous cholecystitis. August [address] Duval. IV Zosyn. Liquid diet being advanced -Essential hypertension Zestril -GERD Omeprazole -Chronic urinary stress incontinence toviaz -Primary osteoarthritis multiple joints bilaterally Tylenol as needed IV Zosyn. Subcu Lovenox. . IV fluids. Diet being advanced by surgery Dr. Duval
[2022-08-05] MEDS: PIPERACILLIN-TAZOBACTAM 3.375 GM in SODIUM CHLORIDE 0.9% 100 ML IVPB SCH ×2 (01:14→10:14)
[2022-08-05] MEDS: SODIUM CHLORIDE 0.9% 1,000 ML IV SCH ×2 (01:15→11:22)
[2022-08-05] MEDS: HYDROcodone/APAP 5-325MG 1 EACH TAB PO PRN ×2 (06:14→13:50)
[2022-08-05 07:43] VITALS: BP 128/65; PULSE 66; RESP 17; TEMP 98.5
[2022-08-05] MEDS ORDERED: lisinopriL 20 MG TAB PO SCH (09:00)
[2022-08-05] MEDS: PANTOPRAZOLE 40 MG/10 ML VIAL IV SCH (09:04)
[2022-08-05] MEDS: ENOXAPARIN 40 MG/0.4 ML SYRINGE SQ SCH (09:04)
[2022-08-05] MEDS: TROSPIUM CHLORIDE 20 MG TABLET PO SCH (09:05)
--- NOTE | 2022-08-05 11:50 | P.DS ---
Providers Date of admission: 08/02/22 21:15 Expected date of discharge: 08/05/22 Attending physician: Be Soliz Consults: 08/02/22 21:03 Consult Physician Routine Consulting Provider: Daniel Beal Consult Reason/Comments: Medical clearance for surgery Do you want consulting provider notified?: Yes Primary care physician: Mike Tirado - Discharge Diagnosis(es) (1) Acute gangrenous cholecystitis Patient was admitted after being transferred from [facility] for acute cholecystitis. She underwent laparoscopic cholecystectomy 2 days ago. She was found have gangrenous cholecystitis. Patient's pain has continued to improve. BLANKA drain remains serosanguineous at this time. Will plan discharge today with outpatient follow-up. Short course of antibiotics and pain medications will be provided. Current Visit: Yes Status: Acute Patient Condition at Discharge: Fair Plan - Discharge Summary New Discharge Prescriptions: No Action Aspirin [Adult Low Dose Aspirin EC] 81 mg PO DAILY Omeprazole 40 mg PO HS Calcium Carbonate [Calcium] 600 mg PO DAILY Lisinopril-Hctz 10-12.5 mg [Zestoretic 10-12.5] 1 tab PO DAILY lisinopriL [Zestril] 20 mg PO DIRECTED PRN PRN Reason: TRAVELING Fesoterodine Fumarate [Toviaz] 4 mg PO DAILY Cholecalciferol [Vitamin D3 (125 Mcg = 5000 Iu)] 125 mcg PO DAILY Discharge Medication List Aspirin [Adult Low Dose Aspirin EC] 81 mg PO DAILY 01/17/22 [History] Calcium Carbonate [Calcium] 600 mg PO DAILY 08/02/22 [History] Cholecalciferol [Vitamin D3 (125 Mcg = 5000 Iu)] 125 mcg PO DAILY 08/02/22 [History] Fesoterodine Fumarate [Toviaz] 4 mg PO DAILY 08/02/22 [History] Lisinopril-Hctz 10-12.5 mg [Zestoretic 10-12.5] 1 tab PO DAILY 08/02/22 [History] Omeprazole 40 mg PO HS 08/02/22 [History] lisinopriL [Zestril] 20 mg PO DIRECTED PRN 08/02/22 [History] Follow up Appointment(s)/Referral(s): Mike Tirado MD [Primary Care Provider] - 1-2 days
--- NOTE | 2022-08-05 13:07 | P.PN ---
Progress Note - Text Progress Note Date: 08/05/22 - Chief Complaint Right upper quadrant pain Hospital course This is a pleasant 67-year-old patient who follows Dr. Tirado. Chronic stable medical conditions include hypertension, GERD, urinary incontinence, arthritis. Patient started off with right upper quadrant pain that progressively became worse. Presented to the ER. Also developed chills. Accompanied by Nausea vomiting. Symptoms became worse patient decided to come to the hospital. August 04: Underwent removal of gangrenous cholecystitis. On IV Zosyn. IV fluids. On a liquid diet. Has been up to urinate. No flatus or BM. Pain present. August 05: Patient seen earlier today. Abdominal pain better. Tolerating diet. Had the patient walk in the hallway. Abdominal suction ball in place. No flatus or BM. Active Medications Hydrocodone Bitart/Acetaminophen (Hydrocodone/Apap 5-325mg 1 Each Tab) 1 each PO Q4HR PRN PRN Reason: Mild Pain (Scale 1 to 3) Last Admin: 08/05/22 06:14 Dose: 1 each Enoxaparin Sodium (Enoxaparin 40 Mg/0.4 Ml Syringe) 40 mg SQ DAILY [facility] Last Admin: 08/05/22 09:04 Dose: 40 mg Hydromorphone HCl (Hydromorphone 0.5 Mg/0.5 Ml Syringe) 0.5 mg IVP Q3HR PRN PRN Reason: Moderate Pain (Scale 4 to 6) Last Admin: 08/03/22 21:54 Dose: 0.5 mg Hydromorphone HCl (Hydromorphone 1 Mg/Ml 1 Ml Syringe) 1 mg IVP Q3HR PRN PRN Reason: Moderate to Severe Pain Sodium Chloride (Saline 0.9%) 1,000 mls @ 10 mls/hr IV .Q24H [facility] Last Admin: 08/05/22 11:22 Dose: Not Given Piperacillin Sod/Tazobactam (Sod 3.375 gm/ Sodium Chloride) 100 mls @ 25 mls/hr IVPB Q8H [facility]; Protocol Last Admin: 08/05/22 10:14 Dose: 25 mls/hr Lisinopril (Lisinopril 20 Mg Tab) 20 mg PO DAILY [facility] Last Admin: 08/05/22 09:04 Dose: 20 mg Naloxone HCl (Naloxone 0.4 Mg/Ml 1 Ml Vial) 0.2 mg IV Q2M PRN PRN Reason: Opioid Reversal Ondansetron HCl (Ondansetron 4 Mg/2 Ml Vial) 4 mg IVP Q8HR PRN PRN Reason: Nausea And Vomiting Last Admin: 08/03/22 15:12 Dose: 4 mg Pantoprazole Sodium (Pantoprazole 40 Mg/10 Ml Vial) 40 mg IV DAILY [facility] Last Admin: 08/05/22 09:04 Dose: 40 mg Trospium (Trospium Chloride 20 Mg Tablet) 20 mg PO DAILY [facility] Last Admin: 08/05/22 09:05 Dose: Not Given Past medical history to include: GERD, hypertension, prediabetes, overactive bladder, fell last week with some sore ribs Social history: Lives alone. Stopped smoking 20 years ago. Smoked lightly. Alcohol occasionally. 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 Physical examination: VITAL SIGNS: 98.5, 66, 17, 1 28 x 65, 93% room air GENERAL:, Up in a chair, comfortable EYES: Pupils equal. Conjunctiva normal. HEENT: External appearance of nose and ears normal, oral cavity grossly normal. NECK: JVD not raised; masses not palpable. HEART: First and second heart sounds are normal; no edema. LUNGS: Respiratory rate normal; clear to auscultation. ABDOMEN: Soft, some abdominal tenderness, no guarding rigidity, liver spleen not palpable, no masses palpable. BLANKA drain PSYCH: Alert and oriented x3; mood and affect normal. MUSCULOSKELETAL:No Clubbing/cyanosis;muscles-grossly intact, evidence of OA INVESTIGATIONS, reviewed in the clinical context: August 04: WBC 8.2 hemoglobin 11.7 platelets 153 potassium 4.4 creatinine 0.7 White count 9.8 hemoglobin 13 platelets 161 potassium 3.5 crit 0.61 creatinine 0.61 total bilirubin 1.2 Assessment: And plan: -Acute gangrenous cholecystitis. August [address] Duval. IV Zosyn. Low-fat diet. BLANKA drain. -Essential hypertension Zestril -GERD Omeprazole -Chronic urinary stress incontinence toviaz -Primary osteoarthritis multiple joints bilaterally Tylenol as needed IV Zosyn. Subcu Lovenox. . DC IV fluids.. Low-fat diet. Increase activity in the hallway.
[2022-08-06] MEDS ORDERED: PANTOPRAZOLE 40 MG TABLET PO SCH (07:30)
--- NOTE | 2022-08-09 09:05 | CDI ---
Documentation Clarification Form Date: 08/09/22 From: Kriss Palomares Admit Date: 08/02/2022 09:15:00 PM Patient Name: Destiney Borjas Visit Number: [id number] Discharge Date: 08/05/2022 02:05:00 PM ATTENTION: The Clinical Documentation Specialists (CDI) and [facility] Coding Staff appreciate your assistance in clarifying documentation. Please respond to the clarification below the line at the bottom and electronically sign. The CDI & [facility] Coding staff will review the response and follow-up if needed. Please note: Queries are made part of the Legal Health Record. If you have any questions, please contact the author of this message via ITS. Dr. Be Soliz, The final diagnosis of the pathology report states Severe, ulcerated and hemorrhagic acute and chronic cholecystitis with cholelithiasis. Coding guidelines do not allow coding professionals to code based on pathology results; therefore, clarification is requested. History/risk factors: HTN, GERD, overactive bladder, stress incontinence, prediabetic, arthritis Clinical Indicators: Patient started off with right upper quadrant pain that progressively became worse. Presented to the ER. Also developed chills Accompanied by Nausea vomiting. Treatment: Laparoscopic cholecystectomy Please clarify if you agree with the pathology report diagnosis of severe, ulcerated and hemorrhagic acute and chronic cholecystitis with cholelithiasis: [ X] Yes [ ] No [ ] Other (please specify) [ ] Unable to determine MTDD
== END 2022-08-05 14:05 | disposition home or self-care (01) | DRG 418 ==
LOC: EC 17:07 → 5NMEDONC 21:15 → 6NMEDSUR 21:33
PROVIDERS: ADMIT Surgery; ATTEND Surgery
PROC: 0FT44ZZ Resection of Gallbladder, Percutaneous Endoscopic Approach (ICD-10-PCS; principal; 2022-08-03 10:40)
DX: K80.12 Calculus of gallbladder with acute and chronic cholecystitis without obstruction (principal); K82.1 Hydrops of gallbladder; K82.A1 Gangrene of gallbladder in cholecystitis; K21.9 Gastro-esophageal reflux disease without esophagitis; I10 Essential (primary) hypertension; N32.81 Overactive bladder; N39.3 Stress incontinence (female) (male); M15.9 Polyosteoarthritis, unspecified; R73.03 Prediabetes; E87.6 Hypokalemia; Z79.82 Long term (current) use of aspirin; Z79.899 Other long term (current) drug therapy; Z87.891 Personal history of nicotine dependence; Z60.2 Problems related to living alone
CPT/HCPCS: 80053; 85025; 88304; 99284

== ENCOUNTER → 2022-08-17 | Outpatient (CLI) | payer MEDICARE ==
--- NOTE | 2022-08-17 12:55 | USB ---
Risk Values: Samantha 5 year model risk: 1.1%. NCI Lifetime model risk: 3.5%. Prior Study Comparison: 04/19/2022 Bilateral MG 3D screening mammo w/cad, Unknown. Findings: There is irregular hypoechoic area measuring 0.5 x 0.7 x 0.5 cm. This is located at the 9:00 position 3 cm the nipple. Biopsy is recommended. There is an oval hypoechoic area with a hyperechoic center measuring 0.6 cm in the retroareolar position 6:00 position. This could be intermammillary lymph node. No corresponding mammographic abnormality identified. Short-term Follow-up is recommended.. Overall Assessment: Suspicious, BI-RAD 4 Management: Ultrasound Core Biopsy of the right breast. A clinical breast exam by your physician is recommended on an annual basis and results should be correlated with mammographic findings. Electronically signed and approved by: Ranjit Del Rio D.O. Radiologis
--- NOTE | 2022-08-20 11:45 | MM ---
Reason for Exam: Clinical finding. Last screening mammogram was performed 4 month(s) ago. Indicated Problems: Bloody discharge of the right side for 6 Month(s). Risk Values: Samantha 5 year model risk: 1.1%. NCI Lifetime model risk: 3.5%. Prior Study Comparison: 04/19/2022 Bilateral MG 3D screening mammo w/cad, Unknown. Tissue Density: There are scattered fibroglandular densities. Findings: Analyzed By CAD. Pattern appears stable. Multiple benign calcifications are present. Pattern appears stable. Additional evaluation with ultrasound is recommended. Overall Assessment: Incomplete: need additional imaging evaluation, BI-RAD 0 Management: Diagnostic Breast Ultrasound of the right breast. A clinical breast exam by your physician is recommended on an annual basis and results should be correlated with mammographic findings. This exam should not preclude additional follow-up of suspicious palpable abnormalities. Results were given to the patient verbally at the time of exam. Electronically signed and approved by: Ranjit Del Rio D.O. Radiologis
== END | disposition home or self-care (01) ==
LOC: RADMAMWWP 09:30
PROVIDERS: ATTEND Surgery
DX: R92.8 Other abnormal and inconclusive findings on diagnostic imaging of breast (principal); N64.52 Nipple discharge
CPT/HCPCS: 77065; 76641; G0279; 77061

== ENCOUNTER → 2022-08-29 | Day surgery (SDC) | payer MEDICARE ==
--- NOTE | 2022-09-03 09:11 | USB ---
Risk Values: Samantha 5 year model risk: 1.1%. NCI Lifetime model risk: 3.5%. Prior Study Comparison: 04/19/2022 Bilateral MG 3D screening mammo w/cad, Unknown. 08/17/2022 Bilateral MG 3D diag mammo w/cad RT, [facility]. Pathology Description: Location: 9 o'clock. Marker Left Behind. Needle Type: Mammotome Cores: 5 Gauge: 13 The procedure of ultrasound guided core biopsy was explained to the patient. Benefits, alternatives, and risks were discussed. An informed consent was then obtained. The patient was placed in supine positioning for imaging and for the procedure. The overlying skin was prepped and draped in usual sterile fashion. Lidocaine was used as anesthetic into the skin and subcutaneous tissue up to area of concern in the right breast. Under ultrasound guidance, a 12-gauge vacuum assisted biopsy gun device was used to obtain 5 core samples. Following this, a butterfly biopsy clip was left in lesion. The patient tolerated the procedure well without any immediate complication. The patient was kept in the radiology department for short stay after the procedure and then discharged home in stable condition. Postprocedure mammogram: The patient was transferred to mammography for physician ordered post procedure mammogram for clip placement verification. Impression: Successful, uncomplicated ultrasound guided core biopsy of area of concern in the right breast, full pathology results to follow. Pathology Results: Result: Benign, Fibrocystic change. RIGHT BREAST, NINE O'CLOCK, ULTRASOUND GUIDED NEEDLE CORE BIOPSY: Benign breast with fibrocystic changes. Overall Assessment: Benign Management: Diagnostic Breast Ultrasound of the right breast in 6 months. Electronically signed and approved by: Lobo Nowak D.O.
== END ==
LOC: RADUSWWP 10:08
PROVIDERS: ATTEND Surgery
DX: D24.1 Benign neoplasm of right breast (principal); R92.8 Other abnormal and inconclusive findings on diagnostic imaging of breast
CPT/HCPCS: 88305; 77065; 19083; A4648

== ENCOUNTER → 2023-02-25 | Outpatient (CLI) | payer MEDICARE ==
--- NOTE | 2023-02-25 11:15 | USB ---
Reason for Exam: Follow-up at short interval from prior study. Patient History: First Full-Term at age 17. Postmenopausal. 08/29/2022, Benign US biopsy breast VAD RT on the right side. Risk Values: Samantha 5 year model risk: 1.3%. NCI Lifetime model risk: 3.9%. Technique: Method: Targeted. Prior Study Comparison: 04/19/2022 Bilateral MG 3D screening mammo w/cad, Unknown. 08/17/2022 Bilateral MG 3D diag mammo w/cad RT, [facility]. 08/29/2022 Right MG diagnostic mammo RT wo CAD, [facility]. Findings: The lateral section of the breast of the right breast, the axilla of the right breast and the retroareolar of the right breast were scanned. Previously noted biopsied lesion is unchanged. Biopsy clip marker is noted within the lesion. No new solid or cystic lesions identified. Overall Assessment: Benign, BI-RAD 2 Management: Screening Mammogram of both breasts in 6 months. A clinical breast exam by your physician is recommended on an annual basis and results should be correlated with mammographic findings. This exam should not preclude additional follow-up of suspicious palpable abnormalities. Results were given to the patient verbally at the time of exam. Electronically signed and approved by: Richard Santamaria M.D. Radiologis
--- NOTE | 2023-02-25 12:11 | MM ---
Reason for Exam: Follow-up at short interval from prior study. Last screening mammogram was performed 6 month(s) ago. Patient History: First Full-Term at age 17. Postmenopausal. 08/29/2022, Benign US biopsy breast VAD RT on the right side. Risk Values: Samantha 5 year model risk: 1.3%. NCI Lifetime model risk: 3.9%. Prior Study Comparison: 04/19/2022 Bilateral MG 3D screening mammo w/cad, Unknown. 08/17/2022 Bilateral MG 3D diag mammo w/cad RT, [facility]. 08/29/2022 Right MG diagnostic mammo RT wo CAD, [facility]. Tissue Density: Right: There are scattered fibroglandular densities. Findings: Analyzed By CAD. Scattered benign calcifications are redemonstrated. Previously sampled nodule is identified and appears unchanged. Overall Assessment: Incomplete: need additional imaging evaluation, BI-RAD 0 Management: Diagnostic Breast Ultrasound of the right breast. A clinical breast exam by your physician is recommended on an annual basis and results should be correlated with mammographic findings. This exam should not preclude additional follow-up of suspicious palpable abnormalities. Results were given to the patient verbally at the time of exam. Electronically signed and approved by: Richard Santamaria M.D. Radiologis
== END | disposition home or self-care (01) ==
LOC: RADMAMWWP 09:41
PROVIDERS: ATTEND Surgery
DX: R92.8 Other abnormal and inconclusive findings on diagnostic imaging of breast (principal); Z78.0 Asymptomatic menopausal state
CPT/HCPCS: 77065; 76642; G0279; 77061

== ENCOUNTER → 2023-09-09 | Outpatient (CLI) | payer MEDICARE ==
--- NOTE | 2023-09-10 10:48 | MM ---
Reason for Exam: Screening (asymptomatic). Last screening mammogram was performed 12 month(s) ago. Patient History: Menarche at age 12. First Full-Term at age 17. Postmenopausal. 08/29/2022, Benign US biopsy breast VAD RT on the right side. Risk Values: Samantha 5 year model risk: 1.3%. NCI Lifetime model risk: 3.9%. Prior Study Comparison: 08/17/2022 Bilateral MG 3D diag mammo w/cad RT, [facility]. 08/29/2022 Right MG diagnostic mammo RT wo CAD, [facility]. 02/25/2023 Right MG 3D diag mammo w/cad RT, [facility]. Tissue Density: The breast tissue is heterogeneously dense. This may lower the sensitivity of mammography. Findings: Analyzed By CAD. Pattern appears symmetrical and stable. Multiple benign-appearing calcifications are present, stable from comparison. Stable coarse calcifications are within the right breast. No suspicious groups of microcalcifications, spiculated or lobular masses, architectural distortion or other secondary signs of malignancy are mammographically apparent. Overall Assessment: Benign, BI-RAD 2 Management: Screening Mammogram of both breasts in 1 year. A negative mammogram report should not preclude additional follow up of suspicious palpable abnormalities. Patient should continue monthly self breast exam. A clinical breast exam by your physician is recommended on an annual basis and results should be correlated with mammographic findings. Electronically signed and approved by: Ranjit Del Rio D.O. Radiologis
== END | disposition home or self-care (01) ==
LOC: RADMAMWWP 09:37
PROVIDERS: ATTEND Surgery
DX: Z12.31 Encounter for screening mammogram for malignant neoplasm of breast (principal); Z78.0 Asymptomatic menopausal state
CPT/HCPCS: 77063; 77067

== ENCOUNTER → 2024-09-11 | Outpatient (CLI) | payer MEDICARE ==
--- NOTE | 2024-09-11 10:58 | MM ---
Reason for Exam: Screening (asymptomatic). Last mammogram was performed 1 year(s) and 1 month(s) ago. Patient History: Menarche at age 12. First Full-Term at age 17. Postmenopausal. 08/29/2022, Benign US biopsy breast VAD RT on the right side. Risk Values: Samantha 5 year model risk: 1.4%. NCI Lifetime model risk: 3.8%. Prior Study Comparison: 08/29/2022 Right MG diagnostic mammo RT wo CAD, [facility]. 02/25/2023 Right MG 3D diag mammo w/cad RT, [facility]. 09/09/2023 Bilateral MG 3D screening mammo w/cad, [facility]. Tissue Density: There are scattered areas of fibroglandular density. Findings: Analyzed By CAD. Right breast: There is no suspicious group of microcalcifications or new suspicious mass. Benign-appearing calcifications right breast. Left breast: There is no suspicious group of microcalcifications or new suspicious mass. Benign-appearing calcifications left breast. Overall Assessment: Benign, BI-RAD 2 Management: Screening Mammogram of both breasts in [address] [facility] will attempt to contact patient to return for supplemental views and ultrasound if indicated. Patient should continue monthly self-breast exams. A clinical breast exam by your physician is recommended on an annual basis. This exam should not preclude additional follow-up of suspicious palpable abnormalities. Note on Samantha scores and lifetime risk: 1. A Samantha score greater than 3% is considered moderate risk. If this is the case, consider specialist referral to assess eligibility for a risk reducing agent. 2. If overall lifetime risk for the development of breast cancer is 20% or higher, the patient may qualify for future screening with alternating mammogram and breast MRI. [facility], , 09/11/2024 10:55 AM. Electronically signed and approved by: Oneil Nick DO
== END | disposition home or self-care (01) ==
LOC: RADMAMWWP 09:18
PROVIDERS: ATTEND Family Medicine
DX: Z12.31 Encounter for screening mammogram for malignant neoplasm of breast (principal); R92.323 Mammographic fibroglandular density, bilateral breasts; Z78.0 Asymptomatic menopausal state
CPT/HCPCS: 77063; 77067